=== PATIENT | male | born 2000 | race Hispanic/Latino ===

== ENCOUNTER 2019-10-28 06:57 | Emergency (ER) | payer SELFPAY ==
[2019-10-28] MEDS ORDERED: Ketorolac Tromethamine 30 MG/ML VIAL ONE (07:08)
[2019-10-28 07:12] LABS: #Basophils 0.2 thou/uL (0.0-0.2); #Eosinphils 0.2 thou/uL (0.0-0.7); #Lymphocytes 4.1 thou/uL (1.20-3.40); #Neutrophils 5.6 thou/uL (1.40-6.50); %Eosinophils 2.2 % (0.0-10.0); %Lymphocytes 36.7 % (28.0-48.0); %Monocytes 8.8 % (0.0-4.0); %Neutrophils 50.2 % (31.0-61.0); Hemoglobin 15.5 g/dL (14.0-18.0); Mean Corpuscular HGB CONC 32.2 g/dL (32.0-36.0); Mean Corpuscular Hemoglobin 29.7 pg (25.0-35.0); Mean Corpuscular Volume 92.3 fL (78.0-98.0); Mean Platelet Volume 8.2 fL (7.4-10.4); Platelet Count 278 thou/uL (130-400); RBC Distribution Width 11.7 % (11.5-14.5); Red Blood Cell (RBC) Count 5.21 mill/uL (4.00-5.20); White Blood Cell (WBC) Count 11.2 thou/uL (4.8-10.8)
[2019-10-28 07:25] LABS: ALT (SGPT) 15 U/L (8-55); AST (SGOT) 19 U/L (5-34); Albumin 4.5 g/dL (3.5-5.0); Alkaline Phosphatase 103 U/L (50-130); Anion Gap 14 mmol/L (10-20); BUN (Urea Nitrogen) 17 mg/dL (8.9-20.6); Bilirubin, Total 0.5 mg/dL (0.2-1.2); Calc. Creatinine Clearance 0 mL/min (70-130); Calcium 9.6 mg/dL (7.8-10.44); Carbon Dioxide 26 mmol/L (22-29); Chloride 106 mmol/L (98-107); Estimated GFR-MDRD 74; Globulin 2.7 g/dL (2.4-3.5); Glucose 110 mg/dL (70-105); Potassium 4.3 mmol/L (3.5-5.1); Protein, Total 7.2 g/dL (6.0-8.3); Sodium 142 mmol/L (136-145)
[2019-10-28] MEDS ORDERED: Bacitracin 1 PK ONE (08:00)
--- NOTE | 2019-10-28 09:41 | CT ---
CT ABDOMEN AND PELVIS WITH CONTRAST: DATE: 10/28/2019. FINDINGS: Spiral CT of the abdomen and pelvis was done with IV contrast. The lung bases are clear with no sign s of effusion, lung contusion, or pneumothorax. No rib fractures were appreciated. The liver, spleen, pancreas, adrenal glands, gallbladder, kidneys, and abdominal aorta all appeared n ormal. There was no sign of laceration or hematoma to any organ. No free air or free fluid was dete cted. The bowel shows no dilation or signs of obstruction. There is no bowel wall thickening. CT of the pelvis shows no pelvic masses, signs of hematoma, or free fluid. The bony pelvis and lumba r spine appeared intact. No acute fractures were demonstrated. IMPRESSION: No acute traumatic findings. Preliminary report called to Massimo in ER at 0754 on 10/28/2019. CODE CR POS: HOME
--- NOTE | 2019-10-28 09:43 | CT ---
CT OF THE LEFT KNEE: DATE: 10/28/2019. FINDINGS: Spiral CT of the left knee was performed following trauma. Multiplanar reconstructions were done. N o bony fracture was evident. There was no dislocation. The articular surfaces seem smooth. There w ere no remarkable findings in the soft tissues. If any joint fluid is present, it is minimal. IMPRESSION: No acute findings of concern. Preliminary report called to Massimo in ER at 0754 on 10/28/2019. CODE CR POS: HOME
--- NOTE | 2019-10-28 10:47 | RAD ---
PORTABLE CHEST: DATE: 10/28/2019. FINDINGS: An AP portable film at 0740 shows a normal-sized heart and clear lungs. There is no mediastinal wide paulie or shift. The trachea is midline. No fractures were seen. There was no evidence of pneumothor ax. IMPRESSION: No acute thoracic findings. POS: HOME
== END 2019-10-28 08:12 | disposition home or self-care (01) ==
LOC: BURERS 06:57
DX: S80.12XA Contusion of left lower leg, initial encounter (principal); F17.210 Nicotine dependence, cigarettes, uncomplicated; V89.2XXA Person injured in unspecified motor-vehicle accident, traffic, initial encounter
CPT/HCPCS: 71045; 74177; 80053; 85025; 96374; J1885